=== PATIENT | male | born 1965 | race American Indian/Alaskan Native ===

== ENCOUNTER 2018-01-12 11:11 | Emergency (ER) | payer OTHER ==
[~2018-01-12] VITALS: Ht 180.3 cm; Wt 72.6 kg
[2018-01-12] MEDS ORDERED: Amoxicillin500 MG PO (12:19)
== END 2018-01-12 12:23 | disposition home or self-care (01) ==
LOC: ER 11:11
DX: K04.7 Periapical abscess without sinus (principal); F17.200 Nicotine dependence, unspecified, uncomplicated
CPT/HCPCS: 99283

== ENCOUNTER 2018-09-23 13:46 | Emergency (ER) | payer SELFPAY ==
[~2018-09-23] VITALS: Ht 175.3 cm; Wt 68.0 kg
[~2018-09-23 13:46] MED LIST: Amoxicillin500 MG PO
[2018-09-23] MEDS ORDERED: Permethrin60 GM TOP (14:03)
== END 2018-09-23 14:11 | disposition home or self-care (01) ==
LOC: ER 13:46
DX: B85.1 Pediculosis due to Pediculus humanus corporis (principal); Z59.0 Homelessness
CPT/HCPCS: 99282

== ENCOUNTER 2022-08-23 16:52 | Emergency (ER) | payer OTHER ==
[~2022-08-23] VITALS: Ht 182.9 cm; Wt 77.1 kg
[~2022-08-23 16:52] MED LIST changes: +CEPH500 PO; +Permethrin60 GM TOP
== END 2022-08-23 20:13 | disposition home or self-care (01) ==
LOC: ER 16:52
DX: T33.822A Superficial frostbite of left foot, initial encounter (principal); T33.821A Superficial frostbite of right foot, initial encounter; F17.200 Nicotine dependence, unspecified, uncomplicated; X31.XXXA Exposure to excessive natural cold, initial encounter
CPT/HCPCS: 99283; A9270